=== PATIENT | male | born 2000 | race Caucasian/White ===

== ENCOUNTER 2018-05-12 12:29 | Emergency (ER) | payer OTHER ==
[~2018-05-12] VITALS: Ht 188 cm; Wt 90.7 kg
[2018-05-12 12:40] VITALS: BP_SYST 136
[2018-05-12] MEDS: KETOROLAC TROMETHAMINE 60 MG/2 ML VIAL IM ONE (14:15)
== END 2018-05-12 14:50 | disposition home or self-care (01) ==
LOC: SED 12:29
DX: S39.012A Strain of muscle, fascia and tendon of lower back, initial encounter (principal); S29.012A Strain of muscle and tendon of back wall of thorax, initial encounter; R03.0 Elevated blood-pressure reading, without diagnosis of hypertension; Z88.1 Allergy status to other antibiotic agents; X50.0XXA Overexertion from strenuous movement or load, initial encounter; Y93.89 Activity, other specified; Y92.89 Other specified places as the place of occurrence of the external cause; Y99.8 Other external cause status
CPT/HCPCS: 96372; 99283; J1885